=== PATIENT | female | born 1975 | race Caucasian/White ===

== ENCOUNTER 2024-06-04 12:56 | Emergency (ER) | payer MEDICAID ==
[~2024-06-04] VITALS: Ht 170.2 cm; Wt 82.0 kg
[2024-06-04] MEDS ORDERED: OxyCODONE HCL/ACETAMINOPHEN 5-325 MG TABLET PO ONE (20:00)
[2024-06-04 20:44] VITALS: BP 132/66; PULSE 85; RESP 16; TEMP 98.3; O2SAT 99
== END 2024-06-04 21:00 | disposition home or self-care (01) ==
LOC: EMS 13:06
DX: M25.561 Pain in right knee (principal); M25.562 Pain in left knee; M25.551 Pain in right hip
CPT/HCPCS: 29505; 73502; 99284